=== PATIENT | male | born 1960 ===

== ENCOUNTER 2023-07-14 09:45 | Inpatient (IN) | payer OTHER ==
[2023-07-14] MEDS ORDERED: METFORMIN HCL500 MG PO (11:15)
[2023-07-14] MEDS ORDERED: GLUCOT PO (11:15)
[2023-07-14] MEDS ORDERED: ADULT LOW DOSE81 M1 PO (11:16)
[2023-07-14] MEDS ORDERED: GLIPIZIDE XL10 MG PO (11:16)
[2023-07-14] MEDS ORDERED: XANAX (11:17)
[2023-07-14] MEDS ORDERED: NOVOLIN 70100 UNIT/2 (11:18)
[2023-07-14] MEDS ORDERED: NOVOLIN R100 UNIT/1 (11:19)
[2023-07-14 11:51] LABS: HEMATOCRIT 43.9 % (39.0-48.0); HEMOGLOBIN 14.8 g/dL (13-16.00); MEAN CELL VOLUME 94.6 fL (80.0-100.00); MEAN CORPUSCULAR HEMOGLOBIN 31.9 pg (27.00-32.0); MEAN CORPUSCULAR HGB CONC 33.7 g/dl (32.0-36.0); PLATELET COUNT 244 K/uL (150-450); RED BLOOD COUNT 4.64 M/uL (4.00-6.00); RED CELL DISTRIBUTION WIDTH 13.6 % (11.5-14.5)
[2023-07-14 11:55] LABS: PH,URINE 5.5 (5.0-8.0); URINE APPEARANCE Clear; URINE BILIRRUBIN Negative (NEGATIVE); URINE BLOOD Small; URINE COLOR Yellow; URINE GLUCOSE Negative (NEGATIVE); URINE LEUKOCYTE Negative; URINE NITRATE Negative; URINE PROTEIN Negative (NEGATIVE); URINE UROBILINOGEN 0.2 E.U./dl
[2023-07-14 12:00] LABS: URINE BACTERIA 18.8 uL (0.0-1933); URINE RBC 6.8 uL (0.0-20.8); URINE WBC 1.8 uL (0.0-23.2)
[2023-07-14 12:18] LABS: INR 0.97; PARTIAL THROMBOPLASTIN TIME 29.8 SECONDS (22.0-34.0); PROTHROMBIN TIME 10.2 SECONDS (9.0-11.5); URINE EPITHELIAL CELLS 1.2 uL (0.0-38.8)
[2023-07-14 12:31] LABS: CALCIUM 9.3 mg/dL (8.5-10.1); CREATININE SERUM 0.92 mg/dL (0.70-1.30); GFR 83.09; POTASSIUM 4.76 mEq/L (3.5-5.1); T4 TOTAL 8.75 UG/DL (4.5-12.1); TSH 0.922 uIU/mL (0.358-3.74)
[2023-07-14] MEDS ORDERED: TOPROL XL25 M1 PO (13:44)
[2023-07-14] MEDS ORDERED: CRESTOR20 MG PO (13:44)
[2023-07-14] MEDS ORDERED: COZAAR100 MG PO (13:44)
[2023-07-14] MEDS ORDERED: PLAVIX75 MG PO (13:44)
[2023-07-14] MEDS ORDERED: ZETIA10 MG PO (13:45)
[2023-07-20] MEDS ORDERED: PERCOCET 5-3251 EACH PO (09:47)
[2023-07-20] MEDS ORDERED: COLACE100 MG PO (09:48)
[2023-07-20] MEDS ORDERED: MEDROLPACK PO (09:48)
[2023-07-20] MEDS ORDERED: AMOX-CLAV 875-1 EACH PO (09:48)
[2023-07-20] MEDS ORDERED: NEURONTIN800 MG PO (09:49)
[2023-07-20] MEDS ORDERED: GABAPENTIN100 M2 PO (09:49)
[2023-07-21 06:18] LABS: HEMATOCRIT 36.5 % (39.0-48.0); HEMOGLOBIN 12.5 g/dL (13-16.00); MEAN CELL VOLUME 91.8 fL (80.0-100.00); MEAN CORPUSCULAR HEMOGLOBIN 31.6 pg (27.00-32.0); MEAN CORPUSCULAR HGB CONC 34.4 g/dl (32.0-36.0); PLATELET COUNT 224 K/uL (150-450); RED BLOOD COUNT 3.97 M/uL (4.00-6.00); RED CELL DISTRIBUTION WIDTH 13.7 % (11.5-14.5)
[2023-07-21 07:00] LABS: CALCIUM 8.2 mg/dL (8.5-10.1); CREATININE SERUM 0.92 mg/dL (0.70-1.30); GFR 83.09; POTASSIUM 4.27 mEq/L (3.5-5.1)
== END 2023-07-22 13:04 | disposition home or self-care (01) | DRG 455 ==
LOC: O/R 07-20 06:21 → SURG 07-20 06:21 → SURH 07-20 09:45 → SURG 07-20 14:24 → SURH 07-20 16:30 → SURG 07-22 13:04
PROVIDERS: ADMIT Orthopaedic Surgery Orthopaedic Surgery of the Spine; ATTEND Orthopaedic Surgery Orthopaedic Surgery of the Spine
PROC: 0SG1071 Fusion of 2 or more Lumbar Vertebral Joints with Autologous Tissue Substitute, Posterior Approach, Posterior Column, Open Approach (ICD-10-PCS; 2023-07-20)
PROC: 0ST20ZZ Resection of Lumbar Vertebral Disc, Open Approach (ICD-10-PCS; 2023-07-20)
PROC: 07DR0ZZ Extraction of Iliac Bone Marrow, Open Approach (ICD-10-PCS; 2023-07-20)
PROC: 4A1104G Monitoring of Peripheral Nervous Electrical Activity, Intraoperative, Open Approach (ICD-10-PCS; 2023-07-20)
PROC: XRGC0R7 Fusion of 2 or more Lumbar Vertebral Joints using Custom-Made Anatomically Designed Interbody Fusion Device, Open Approach, New Technology Group 7 (ICD-10-PCS; principal; 2023-07-20 16:30)
DX: M48.062 Spinal stenosis, lumbar region with neurogenic claudication (principal); M51.36 Other intervertebral disc degeneration, lumbar region; M41.56 Other secondary scoliosis, lumbar region